=== PATIENT | female | born 1970 | race Caucasian/White ===

== ENCOUNTER 2017-10-29 10:46 | Outpatient (CLI) | payer BC | END 2017-10-29 10:47 | disposition home or self-care (01) | LOC: BICMAMMO 10:46 | PROVIDERS: ATTEND Obstetrics & Gynecology | DX: Z12.31 Encounter for screening mammogram for malignant neoplasm of breast (principal); Z80.3 Family history of malignant neoplasm of breast | CPT/HCPCS: 77063; 77067 ==

== ENCOUNTER 2018-10-31 15:28 | Outpatient (CLI) | payer BC | END 2018-10-31 15:29 | disposition home or self-care (01) | LOC: BICMAMMO 15:28 | PROVIDERS: ATTEND Obstetrics & Gynecology | DX: Z12.31 Encounter for screening mammogram for malignant neoplasm of breast (principal); Z80.3 Family history of malignant neoplasm of breast | CPT/HCPCS: 77063; 77067 ==

== ENCOUNTER 2019-05-25 09:20 | Emergency (ER) | payer BC | END 2019-05-25 09:53 | disposition home or self-care (01) | LOC: SCSER 09:20 | DX: K13.0 Diseases of lips (principal); Z79.899 Other long term (current) drug therapy | CPT/HCPCS: 99283 ==

== ENCOUNTER 2022-06-12 14:31 | Outpatient (CLI) | payer BC | END 2022-06-12 14:32 | disposition home or self-care (01) | LOC: BICMAMMO 14:31 | PROVIDERS: ATTEND Obstetrics & Gynecology | DX: N64.89 Other specified disorders of breast (principal); N63.10 Unspecified lump in the right breast, unspecified quadrant | CPT/HCPCS: G0279 ==

== ENCOUNTER → 2022-06-20 | Day surgery (SDC) | payer BC | END | disposition home or self-care (01) | LOC: BICULT 12:50 | PROVIDERS: ATTEND Obstetrics & Gynecology | PROC: 07B53ZX Excision of Right Axillary Lymphatic, Percutaneous Approach, Diagnostic (ICD-10-PCS; principal; 2022-06-20) | PROC: 0H9T3ZX Drainage of Right Breast, Percutaneous Approach, Diagnostic (ICD-10-PCS; principal; 2022-06-20) | DX: C50.311 Malignant neoplasm of lower-inner quadrant of right female breast (principal); C77.3 Secondary and unspecified malignant neoplasm of axilla and upper limb lymph nodes | CPT/HCPCS: 19083; 38505; 88305; 88341; 88342 ==

== ENCOUNTER 2022-07-06 08:14 | Outpatient (CLI) | payer BC ==
[2022-07-06] MEDS ORDERED: Iopamidol 370 76% 100 ML VIAL ONE (08:38)
== END 2022-07-06 08:15 | disposition home or self-care (01) ==
LOC: CT 08:14
PROVIDERS: ATTEND Internal Medicine Hematology & Oncology
DX: C50.311 Malignant neoplasm of lower-inner quadrant of right female breast (principal)
CPT/HCPCS: 71260; 74177; 78306; A9503

== ENCOUNTER 2022-07-11 12:30 | Outpatient (CLI) | payer BC | END 2022-07-11 12:31 | disposition home or self-care (01) | LOC: PET 12:30 | PROVIDERS: ATTEND Internal Medicine Hematology & Oncology | DX: C50.811 Malignant neoplasm of overlapping sites of right female breast (principal); R59.0 Localized enlarged lymph nodes; C79.51 Secondary malignant neoplasm of bone | CPT/HCPCS: 78815; A9552 ==

== ENCOUNTER 2022-10-17 11:45 | Outpatient (CLI) | payer BC | END 2022-10-17 11:46 | disposition home or self-care (01) | LOC: PET 11:45 | PROVIDERS: ATTEND Internal Medicine Hematology & Oncology | DX: C50.811 Malignant neoplasm of overlapping sites of right female breast (principal); C79.51 Secondary malignant neoplasm of bone | CPT/HCPCS: 78815; A9552 ==

== ENCOUNTER 2023-09-13 09:30 | Outpatient (CLI) | payer BC | END 2023-09-13 09:31 | disposition home or self-care (01) | LOC: PET 09:30 | PROVIDERS: ATTEND Internal Medicine Hematology & Oncology | DX: C50.811 Malignant neoplasm of overlapping sites of right female breast (principal); C79.51 Secondary malignant neoplasm of bone; R94.8 Abnormal results of function studies of other organs and systems | CPT/HCPCS: 78815; A9552 ==

== ENCOUNTER → 2023-11-14 | Outpatient (CLI) | payer BC | LOC: PET 10:15 | PROVIDERS: ATTEND Internal Medicine Hematology & Oncology | DX: C50.811 Malignant neoplasm of overlapping sites of right female breast (principal); C79.51 Secondary malignant neoplasm of bone | CPT/HCPCS: 78815; A9552 ==

== ENCOUNTER 2024-09-08 08:00 | Outpatient (CLI) | payer BC | END 2024-09-08 08:01 | disposition home or self-care (01) | LOC: PET 08:00 | PROVIDERS: ATTEND Internal Medicine Hematology & Oncology | DX: C50.811 Malignant neoplasm of overlapping sites of right female breast (principal); C79.51 Secondary malignant neoplasm of bone; R30.0 Dysuria; C77.9 Secondary and unspecified malignant neoplasm of lymph node, unspecified | CPT/HCPCS: 78815; A9552 ==

== ENCOUNTER 2025-06-30 08:45 | Outpatient (CLI) | payer BC | END 2025-06-30 08:46 | LOC: PET 08:45 | PROVIDERS: ATTEND Internal Medicine Hematology & Oncology | DX: R30.0 Dysuria (principal); C50.811 Malignant neoplasm of overlapping sites of right female breast; C79.51 Secondary malignant neoplasm of bone; C78.7 Secondary malignant neoplasm of liver and intrahepatic bile duct; C77.3 Secondary and unspecified malignant neoplasm of axilla and upper limb lymph nodes | CPT/HCPCS: 78815; A9552 ==

== ENCOUNTER 2025-07-28 07:51 | Outpatient (CLI) | payer BC ==
[2025-07-28] MEDS ORDERED: Iopamidol 370 76% 100 ML VIAL ONE (10:08)
== END 2025-07-28 07:52 | disposition home or self-care (01) ==
LOC: CT 07:51
PROVIDERS: ATTEND Internal Medicine Hematology & Oncology
DX: C50.811 Malignant neoplasm of overlapping sites of right female breast (principal); C79.51 Secondary malignant neoplasm of bone; R30.0 Dysuria; M17.0 Bilateral primary osteoarthritis of knee; M16.10 Unilateral primary osteoarthritis, unspecified hip
CPT/HCPCS: Q9967

== ENCOUNTER 2025-08-04 07:58 | Outpatient (CLI) | payer BC ==
[2025-08-04] MEDS ORDERED: Iopamidol 370 76% 100 ML VIAL ONE (12:21)
== END 2025-08-04 07:59 | disposition home or self-care (01) ==
LOC: CT 07:58
PROVIDERS: ATTEND Internal Medicine Hematology & Oncology
DX: R30.0 Dysuria (principal); C50.811 Malignant neoplasm of overlapping sites of right female breast; C79.51 Secondary malignant neoplasm of bone
CPT/HCPCS: Q9967

== ENCOUNTER 2025-09-29 08:45 | Outpatient (CLI) | payer BC | END 2025-09-29 08:46 | disposition home or self-care (01) | LOC: PET 08:45 | PROVIDERS: ATTEND Internal Medicine Hematology & Oncology | DX: R30.0 Dysuria (principal); C50.811 Malignant neoplasm of overlapping sites of right female breast; C79.51 Secondary malignant neoplasm of bone; R91.8 Other nonspecific abnormal finding of lung field; C78.7 Secondary malignant neoplasm of liver and intrahepatic bile duct | CPT/HCPCS: 78815; A9552 ==